=== PATIENT | male | born 1965 | race Caucasian/White ===

== ENCOUNTER 2021-04-25 10:03 | Emergency (ER) | payer OTHER, SELFPAY ==
--- NOTE | 2021-04-25 10:34 | ED.EAR ---
HPI - Ear Problem General Chief complaint: Ear Stated complaint: Bilateral Ear Pain Source: patient Mode of arrival: ambulatory Limitations: no limitations History of Present Illness HPI Narrative: Patient is a 56-year-old male who presents complaining of bilateral ear discomfort and muffled hearing x3 days. He reports sore throat and cough. Denies fever. Denies chest pain denies shortness of breath. Patient reports Covid vaccinated x2. He denies known exposure to Covid. He denies taking [id number] medication for symptomatic relief. MD Complaint: ear pain Related Data Home Medications Medication Instructions Recorded Confirmed amlodipine 04/25/21 atorvastatin 04/25/21 cilostazol mg 04/25/21 diazepam 04/25/21 hydrochlorothiazide 04/25/21 isosorbide mononitrate mg PO 04/25/21 metformin mg 04/25/21 sitagliptin [Januvia] mg 04/25/21 Allergies Allergy/AdvReac Type Severity Reaction Status Date / Time Iodinated Contrast Media Allergy Severe Swelling Verified 04/25/21 11:00 Penicillins Allergy Severe Anaphylactic Verified 04/25/21 11:00 Shock iodine Allergy Unknown Skin Verified 04/25/21 11:00 Reaction SHELLFISH Allergy Mild swelling Uncoded 04/25/21 11:00 Review of Systems Review of Systems: CONSTITUTIONAL: Denies fever, chills, or sweats. EYES: Denies visual changes, redness, or discharge. ENT: Reports sore throat and otalgia CARDIOVASCULAR: Denies chest pain, palpitations, or edema. RESPIRATORY: Reports cough, denies dyspnea. GASTROINTESTINAL: Denies abdominal pain, nausea, vomiting, or diarrhea. GENITOURINARY: Denies dysuria or hematuria. SKIN: Denies rash or itching. MUSCULOSKELETAL: Denies back pain, joint pain, or myalgia. NEUROLOGIC: Denies headache, numbness, dizziness, or weakness. PSYCHIATRIC: Denies anxiety or depression. [facility] Past Medical History Medical History Angina pectoris Back pain Bronchitis Chronic pain Elevated cholesterol Fracture GERD (gastroesophageal reflux disease) Gout HTN (hypertension) Kidney stone Opiate use Surgical History Surgical History H/O Spinal surgery Hx of tonsillectomy Family History Family History Other Heart disease Hypertension Social History Social History (Updated 04/25/21 @ 17:57 by ASHIA Sharp) Smoking status: Never smoker Alcohol intake: current Alcohol use details: Occasional Substance use: former Occupation/Education: occupation Gender identity (if verbalized by the patient): Male Comments At the time of signature, I have reviewed and agree with nursing past medical, surgical, social, and family history unless otherwise noted. Please see nursing chart for further information. There is no relevant family history pertinent to the presenting complaint. Exam Narrative: GENERAL: Well-appearing, well-nourished, and in no acute distress. HEAD: Normocephalic, atraumatic. EYES: EOMI. No redness or drainage. Conjunctiva are normal. ENT: Mucous membranes pink and moist. Nares clear. No rhinorrhea. Right TMs normal, left TM cloudy, bulging and injected. Throat mild erythema. Uvula midline. NECK: AROM. Supple. No lymphadenopathy. CHEST: No respiratory distress. HEART: Regular rate and rhythm. EXTREMITIES: Normal range of motion. No edema. SKIN: Warm, dry, no rash. NEURO: No focal deficits. Alert and oriented x3. Gait steady. PSYCH: Normal affect. No signs of depression or anxiety. Course Vital Signs Vital signs: Vital Signs Temperature 36.8 C 04/25/21 10:44 Pulse Rate 63 04/25/21 10:44 Respiratory Rate 16 04/25/21 10:44 Blood Pressure 122/71 04/25/21 10:44 Pulse Oximetry 98 04/25/21 10:44 Temperature 36.8 C 04/25/21 10:44 Pulse Rate 63 04/25/21 10:44 Respiratory Rate 16 04/25/21 1
[2021-04-25 10:44] VITALS: BP 122/71; PULSE 63; RESP 16; TEMP 36.8; O2SAT 98
== END 2021-04-25 11:29 | disposition home or self-care (01) ==
PROVIDERS: Emergency Provider Nurse Practitioner
DX: H66.002 Acute suppurative otitis media without spontaneous rupture of ear drum, left ear (principal); Z20.822 Contact with and (suspected) exposure to COVID-19; E78.00 Pure hypercholesterolemia, unspecified; K21.9 Gastro-esophageal reflux disease without esophagitis; M10.9 Gout, unspecified; I10 Essential (primary) hypertension
CPT/HCPCS: 87426; 99213; C9803; G0463

== ENCOUNTER 2021-09-30 10:25 | Emergency (ER) | payer OTHER, SELFPAY ==
--- NOTE | ~2021-09-30 | XR_ITS ---
EXAMINATION: XR chest 2V DATE: 09/30/2021 11:25 INDICATION: Shortness of breath and productive cough TECHNIQUE: PA and lateral views of the chest were obtained. COMPARISON: Chest radiograph dated 11/24/2015 FINDINGS: The lungs remain clear with no focal airspace opacities, pulmonary edema, pleural effusion or pneumot horax. The cardiomediastinal silhouette is normal. Median sternotomy wires and mediastinal surgical c lips are seen, likely from prior coronary artery bypass grafting. Mild thoracic spondylosis. IMPRESSION: 1. No acute cardiopulmonary disease. Reviewed, dictated and finalized at location A.
[2021-09-30 10:35] VITALS: BP 152/64; PULSE 71; RESP 18; TEMP 37.1; O2SAT 98
--- NOTE | 2021-09-30 11:20 | ED.URI ---
HPI - URI/Sore Throat General Chief Complaint: Upper Respiratory Infection Stated Complaint: Cough,Runny Nose, Bilateral Eye Irritation Time Seen by Provider: 09/30/21 11:20 Source: patient Mode of arrival: ambulatory Limitations: no limitations History of Present Illness HPI Narrative: Bud Abdi is 56 yo nale with extensive PMH of HTN, high cholesterol, DM, opiate abuse. [facility] of upper respiratory symptoms x1 week. He states he has a cough with dark brown mucus that he is coughing up he is concerned about his symptoms try to get a bronchitis. As of his history and his being seen here a week ago with symptoms patient was swabbed for COVID flu and strep. Related Data Home Medications Medication Instructions Recorded Confirmed amlodipine 10 mg PO DAILY 04/25/21 09/30/21 atorvastatin 80 mg PO DAILY 04/25/21 09/30/21 diazepam 10 mg PO PRN PRN 04/25/21 09/30/21 hydrochlorothiazide 25 mg PO DAILY 04/25/21 09/30/21 isosorbide mononitrate 30 mg PO DAILY 04/25/21 09/30/21 labetalol 200 mg PO DAILY 09/30/21 09/30/21 metformin 1,000 mg PO DAILY 09/30/21 09/30/21 Allergies Allergy/AdvReac Type Severity Reaction Status Date / Time Iodinated Contrast Media Allergy Severe Swelling Verified 09/30/21 10:57 lisinopril Allergy Severe Anaphylactic Verified 09/30/21 10:57 Shock Penicillins Allergy Severe Anaphylactic Verified 09/30/21 10:57 Shock iodine Allergy Intermediate Skin Verified 09/30/21 10:57 Reaction SHELLFISH Allergy Severe Anaphylactic Uncoded 09/30/21 10:57 Shock Review of Systems Review of Systems: CONSTITUTIONAL: Denies fever, chills, sweats. EYES: Denies visual changes, redness, discharge. ENT: Denies rhinorrhea, states he gets congestion, mild sore throat, otalgia. CARDIOVASCULAR: Denies chest pain, palpitations, edema. RESPIRATORY: Denies dyspnea, wheezing, has cough GASTROINTESTINAL: Denies abdominal pain, nausea, vomiting, diarrhea. GENITOURINARY: Denies dysuria, hematuria, abnormal discharge SKIN: Denies rash or itching. NEUROLOGIC: Denies numbness, or focal weakness. PSYCHIATRIC: Denies anxiety or depression. [facility] Past Medical History Medical History Angina pectoris Back pain Bronchitis Chronic pain Elevated cholesterol Fracture GERD (gastroesophageal reflux disease) Gout HTN (hypertension) Kidney stone Opiate use Surgical History Surgical History H/O Spinal surgery Hx of CABG Hx of tonsillectomy Family History Family History Other Heart disease Hypertension Social History Social History Smoking status: Never smoker Alcohol intake: current Alcohol use details: Occasional Substance use: former Gender identity (if verbalized by the patient): Male Comments At time of signature, I agree with nursing past medical, surgical, social and family history. There is no relevant family history pertinent to the presenting complaint. Exam Narrative: GENERAL: This is a well-nourished, well-developed patient, in no distress. HEAD: normocephalic, atraumatic. EYES: Sclera clear/white. Vision is grossly intact. EARS: External ears normal, . Hearing grossly intact. NOSE: External nose normal without nasal discharge, nares without redness, no rhinorrhea. THROAT: Mucous membranes moist NECK: Neck supple, non-tender CARDIOVASCULAR: Regular rate and rhythm without murmurs, gallops, or rubs. RESPIRATORY: Clear to auscultation. Breath sounds equal bilaterally. No wheezes, rales, or rhonchi. No coughing during exam GASTROINTESTINAL: Not done SKIN: warm, intact with no suspicious lesions or rash, good texture and turgor. NEURO: awake, alert, and oriented to person, place and time. There were no obvious focal neurologi
== END 2021-09-30 11:50 | disposition home or self-care (01) ==
PROVIDERS: Emergency Provider Nurse Practitioner
DX: J06.9 Acute upper respiratory infection, unspecified (principal); Z20.822 Contact with and (suspected) exposure to COVID-19; E78.00 Pure hypercholesterolemia, unspecified; K21.9 Gastro-esophageal reflux disease without esophagitis; M10.9 Gout, unspecified; I10 Essential (primary) hypertension; Z95.1 Presence of aortocoronary bypass graft; I20.9 Angina pectoris, unspecified; E11.9 Type 2 diabetes mellitus without complications; Z79.84 Long term (current) use of oral hypoglycemic drugs
CPT/HCPCS: 71046; 87081; 87426; 87804; 87880; 99213; C9803; G0463

== ENCOUNTER 2023-06-14 08:17 | Emergency (ER) | payer OTHER, SELFPAY ==
--- NOTE | 2023-06-14 08:29 | ED.URI ---
HPI - URI/Sore Throat General Chief Complaint: Upper Respiratory Infection Stated Complaint: congestion Time Seen by Provider: 06/14/23 08:29 Source: patient Mode of arrival: ambulatory Limitations: no limitations History of Present Illness HPI Narrative: Bud is a 58-year-old male patient presenting to the clinic today with complaints of head congestion, chest congestion, and sore throat x5 days. He denies any fever, chills, or body aches. No shortness of breath or chest pain. States he is coughing up some yellow phlegm this morning. MD elicited complaint: sore throat and nasal congestion Related Data Home Medications Medication Instructions Recorded Confirmed amlodipine 10 mg tablet 10 mg PO DAILY 04/25/21 06/14/23 atorvastatin 80 mg tablet 80 mg PO DAILY 04/25/21 06/14/23 diazepam 10 mg tablet 10 mg PO PRN PRN Anxiety 04/25/21 06/14/23 hydrochlorothiazide 25 mg tablet 25 mg PO DAILY 04/25/21 06/14/23 isosorbide mononitrate 30 mg 30 mg PO DAILY 04/25/21 06/14/23 tablet,extended release 24 hr labetalol 200 mg tablet 200 mg PO DAILY 09/30/21 06/14/23 metformin 1,000 mg tablet 1,000 mg PO DAILY 09/30/21 06/14/23 Allergies Allergy/AdvReac Type Severity Reaction Status Date / Time Iodinated Contrast Media Allergy Severe Swelling Verified 06/14/23 08:44 lisinopril Allergy Severe Anaphylactic Verified 06/14/23 08:44 Shock Penicillins Allergy Severe Anaphylactic Verified 06/14/23 08:44 Shock iodine Allergy Intermediate Skin Verified 06/14/23 08:44 Reaction SHELLFISH Allergy Severe Anaphylactic Uncoded 09/30/21 10:57 Shock Review of Systems Review of Systems: Pertinent positives per HPI. Patient denies any fever, chills, rash, headache, visual changes, dizziness, shortness of breath, chest pain, palpitations, nausea, vomiting, diarrhea, constipation, abdominal pain, or any urinary issues. [facility] Past Medical History Medical History Angina pectoris Back pain Bronchitis Chronic pain Elevated cholesterol Fracture GERD (gastroesophageal reflux disease) Gout HTN (hypertension) Kidney stone Opiate use Surgical History Surgical History H/O Spinal surgery Hx of CABG Hx of tonsillectomy Family History Family History Other Heart disease Hypertension Social History Social History Smoking status: Never smoker Alcohol intake: current Alcohol use details: Occasional Substance use: former Occupation/Education: occupation Gender identity (if verbalized by the patient): Male Comments At the time of my signature, I reviewed and agree with the nursing past medical, surgical, social, and family history. There is no relevant family history pertinent to the patient complaint. Exam Narrative: General: Well-developed, well nourished, in no apparent distress Head: Normocephalic, atraumatic Eyes: Pupils equally round and reactive to light bilaterally, EOM intact, sclera and conjunctive clear, no discharge, lids normal Ears: TMs intact and clear, ear canals clear, no drainage, grossly hearing normal. Nose: Nares patent, clear nasal discharge, mild inflammation, no sinus tenderness. Mouth: Oral pharynx red without lesions or masses, good dentition, MMM. PND Neck: Supple, trachea midline, no enlargement of anterior or posterior cervical nodes, no thyroid masses or goiter palpable. Cardio: Regular rate and rhythm, s1 and s2 normal, no murmur appreciated. Resp: Clear to auscultation bilaterally, no rhonchi, rales, wheezing or rubs Course Course Emergency Course: Portions of this record may have been created with voice recognition software. Level of Care: Express Care Visit Vital Signs Vital signs: Vital signs reviewed MDM - URI/Sore Th
[2023-06-14 08:43] VITALS: BP 136/79; PULSE 68; RESP 16; TEMP 36.5; O2SAT 98
== END 2023-06-14 09:06 | disposition home or self-care (01) ==
PROVIDERS: Emergency Provider Nurse Practitioner Family
DX: J06.9 Acute upper respiratory infection, unspecified (principal); I10 Essential (primary) hypertension; Z79.899 Other long term (current) drug therapy; Z79.84 Long term (current) use of oral hypoglycemic drugs
CPT/HCPCS: 87081; 87880; 99213; G0463